=== PATIENT | female | born 1955 | race Caucasian/White ===

== ENCOUNTER 2019-01-18 08:51 | Day surgery (SDC) | payer OTHER, SELFPAY ==
[2019-01-18 09:17] VITALS: BP 141/75; PULSE 56; RESP 14; TEMP 36.7; BMI 28.0
--- NOTE | 2019-01-18 11:07 | H&P.OPEN ---
History of Present Illness Date of Admission: 01/18/19 The patient is a 63 year old F who presents for a colonoscopy. Patient had a colonoscopy approximately 3 years ago and a polyp was identified. Past Medical/Surgical History - Planned Operation Planned Operative Procedure/s: cscope open access Date of Operative Procedure: 01/18/19 Permit Signed: No S.O.S: No Is This Patient Having a Total Joint: No - Previous Hospitalizations/Surgeries HX Hospitalizations: No HX of Surgeries: hysterectomy/bowel reconstruction. cscope Any Problems With Anesthesia: No You/Your Family Experience Fever (Hyperthermia) With Anes: No Cholinesterase deficiency: No - Cardiovascular Hx Chest Pain within Last 2 months: No Hx of Irregular Heartbeat and/or Afib: No Hx Heart Attack: No Hx Congestive Heart Failure: No Hx Rheumatic Fever: No Hx Hypertension: Yes - controlled with med Hx Internal Defibrillator: No Hx Pacemaker: No Hx Cardiac Catheterization: No Hx Cardiac Surgery/Stents/Etc.: No Hx Stress Test: No HX Edema: No Hx Pain in Legs when Walking/Leg Cramps: No - Respiratory Chronic Cough: No HX of Shortness of Breath: No Hoarseness: No Hx Chronic Obstructive Pulmonary Disease (COPD): No Hx Asthma: No Hx Emphysema: No Hx Sleep Apnea: No Hx Oxygen Use at Home: No Hx Respiratory Tract Infection/Cold (presently): No Do You Snore Loudly (louder than talking or can be heard): No Do You Often Feel Tired/ Fatigued/ Sleepy Dring Daytime?: No Has Anyone Observed You Stop Breathing During Sleep?: No Result (for STOP score): Negative Hx Smoking: Yes - quit 13-15 yrs ago Smoking Status: Former smoker - Gastrointestinal Hx Gastroesophageal Reflux: No Hx Gastrointestinal Disorders: No Hx Gastrointestinal Bleed: No Hx Ulcer: No Hx Hiatal Hernia: No Difficulty Chewing/Swallowing: No Recent Onset of Swallowing Problems: No Special diet followed at home: No Hx Unplanned Weight Loss of 20#: No HX Unplanned Weight Gain of 20#: No - Neurological Hx Seizures: No HX Syncope/Blackout Spells/Unconsciousness: No Hx CVA/Stroke: No Hx Transient Ischemic Attacks (TIA): No Hx Multiple Sclerosis: No Hx Parkinson's Disease: No Hx Head/Neck Injury: No Hx Headaches: No Hx Back Injury/Pain: No Recent Onset of Speech Difficulty: No Restless Legs: No Does patient have nerve stimulator: No Patient instructed to have device shut off: No Rep notified?: No - Blood Disorder Hx Leukemia: No Bleeding Tendencies: No Hx Deep Vein Thrombosis: No Hx High Cholesterol: Yes - on med Blood Transmitted Disease: No Hx Hepatitis: No Hx Cirrhosis: No Hx Anemia: No Hx Blood Disorders: No - Reproduction : No Is Patient Lactating: No Hx Hysterectomy: No Hx Tubal Ligation: Yes Are You Post Menopause: Yes - Genitourinary Hx Renal Disease: No - Musculoskeletal Hx Arthritis: Yes Hx Rheumatoid Arthritis: No Hx Gout: No Recent Onset of an Orthopedic Problem: No - Endocrine Hx Diabetes: No Thyroid Disease: No Hx Steroid Therapy: No - Psycho/Social Hx Substance Use: No Hx Alcohol Use: No Hx Anxiety: Yes - on med Hx Depression: Yes - on med Mental Illness: No Hx Dementia: No - Miscellaneous Hx Cancer: No Recent Exposure to Contagious Disease: No Active MRSA: No Hx of C-Diff: No Any Loose Teeth: No Allergies No Known Allergies Allergy (Verified 01/13/19 11:00) - Discharge Is Pt Admitted From a Penitentiary, or a [place] [facility]: No Who Could Help: family After D/C, Where Do you Plan to Go: Return Home - From the PAT History Number of Risk Factors: 3 - Physical Exam General: Alert, Oriented x3 Neck: Supple, No JVD Lungs: Clear to auscultation Abdomen: Bowel Sounds Present, Soft, Non Tender, Non-Distended Vital Signs Temp Pulse Resp BP 98.0 F 56 L 14 141/75 H 01/18/19 09:17 01/18/19 09:17 01/18/19 09:17 01/18/19 09:17 Oxygen Delivery Method Room Air Weight: 158 lb 11.725 oz Body Mass Index (BMI) 28.0 Assessment/Plan Plan is to do a colonoscopy. Surgery Risks - Colonoscopy Risks Include but are not Limited To: Risks include but are not limited to: Bleeding, perforation requiring further surgery, inability to complete colonoscopy requiring barium enema.
[2019-01-18 11:40] VITALS: BP 109/55; BP 141/75; PULSE 79; RESP 15; TEMP 36.2; O2SAT 95
--- NOTE | 2019-01-18 11:43 | OP.ENDO_ITS ---
01/18/2019 Ren Chicas Re : Colonoscopy procedure for Shasha Marcelino Dear Aviva This procedure was performed on Friday, January 18, 2019. My impressions and recommendations are as follows: Impressions : - The procedure was aborted due to the extreme difficulty of the procedure. - The procedure was aborted due to a tortuous colon. - The entire examined colon is normal. - No specimens collected. Recommendations : - Discharge patient to home. - Resume previous diet. - Continue present medications. - Perform an air contrast barium enema today. - Repeat colonoscopy after studies are complete because the examination was incomplete. My findings are described in the full procedure note, which is enclosed. If I can be of further assistance, please feel free to contact me at Doctor phone number(s): , Fax: [phone], Work: . Sincerely, MD Trevor Barroso MD 01/18/2019 11:42:47 AM This report has been signed electronically.
--- NOTE | 2019-01-18 11:43 | RAD_ITS ---
STUDY: SINGLE CONTRAST BARIUM ENEMA REASON FOR EXAM: Female, 63 years old. Colonoscopy RADIATION DOSAGE (If Supplied By Facility): CTDIvol = ( ) mGy, DLP = ( ) mGycm. Individualized dose optimization techniques were used for this CT.? FLUOROSCOPY TIME (if supplied): (0:51) minutes/seconds TECHNIQUE: Single contrast COMPARISON: None. FINDINGS: [employer] film demonstrates unremarkable bowel gas pattern. Multiple lucent centered fluid was noted within the pelvis. Single contrast barium enema shows normal distention of the colon. No evidence of stricture, polyp, mass lesion, or obstruction. No significant reflux of contrast into the terminal ileum. No caliber change is noted. RAD/Barium Enema No Air Cont IMPRESSION: Normal study Electronically Signed: Pee Jeff MD at 13:57 EDT , Service support ,
[2019-01-18 11:45] VITALS: BP 133/68; BP 141/75; PULSE 83; RESP 16; O2SAT 97
[2019-01-18 11:50] VITALS: BP 138/72; BP 141/75; PULSE 88; RESP 16; O2SAT 100
[2019-01-18 11:55] VITALS: BP 131/73; BP 141/75; PULSE 88; RESP 16; TEMP 36.9; O2SAT 98
[2019-01-18 12:10] VITALS: BP 141/75
== END 2019-01-18 12:10 | disposition home or self-care (01) ==
LOC: EN 08:52 → AC 08:54
PROVIDERS: Family Provider Family Medicine; PCP Family Medicine; Referring Provider Family Medicine; Visit Provider Surgery
PROC: 0DJD8ZZ Inspection of Lower Intestinal Tract, Via Natural or Artificial Opening Endoscopic (ICD-10-PCS; CPT 45378; principal; 2019-01-18 09:55)
DX: Z12.11 Encounter for screening for malignant neoplasm of colon (principal); Z53.8 Procedure and treatment not carried out for other reasons; Z86.010 Personal history of colon polyps; I10 Essential (primary) hypertension; E78.00 Pure hypercholesterolemia, unspecified; F32.9 Major depressive disorder, single episode, unspecified; F41.9 Anxiety disorder, unspecified; Z78.0 Asymptomatic menopausal state; Z79.899 Other long term (current) drug therapy; Z87.891 Personal history of nicotine dependence; Z90.710 Acquired absence of both cervix and uterus
CPT/HCPCS: 45378; 74270; J7120; J1610

== ENCOUNTER → 2021-01-09 13:47 | Outpatient (CLI) | payer OTHER, SELFPAY ==
[2021-01-08 13:55] VITALS: BMI 31.9
--- NOTE | 2021-01-09 13:49 | ECHOD_ITS ---
Reason For Study: Abn EKG Procedure This was a 2D Doppler, Color Flow transthoracic echocardiogram. The exam was of adequate technical quality. Exam performed in department. Left Ventricle Normal LV size. Left ventricular systolic function is normal. The estimated ejection fraction is 65 %. No regional wall motion abnormalities noted. Right Ventricle Normal RV size. Normal systolic function. Atria The left atrium is mildly enlarged. Normal right atrium. No doppler evidence for ASD. Mitral Valve There is no mitral annular calcification. Normal mitral valve. Mild (1+) mitral valve insufficiency. Tricuspid Valve Normal tricuspid valve. Mild tricuspid valve insufficiency. Right ventricular systolic pressure estimated to be 28 mmHg. Aortic Valve Trisinus/trileaflet aortic valve. Mild focal aortic valve calcification. Pulmonic Valve The pulmonic valve is not well visualized. Great Vessels Normal sized aortic root. Pericardium/Pleural No pericardial effusion. MMode/2D Measurements & Calculations LVIDd: 4.4 cm IVSd: 0.96 cm Ao root diam: 3.0 cm LVIDs: 2.7 cm LVPWd: 0.90 cm RVDd: 3.2 cm FS: 38.6 % LAV(MOD-bp): 75.3 ml LVAd ap4: 22.3 cm2 LVAd ap2: 19.9 cm2 LAV(MOD-bp) Indexed: 40.7 ml/m2 LVLd ap4: 6.8 cm LVLd ap2: 6.3 cm LAV(MOD-sp2): 59.1 ml EDV(MOD-sp4): 62.5 ml EDV(MOD-sp2): 52.2 ml LAV(MOD-sp4): 75.0 ml EDV(sp4-el): 62.5 ml EDV(sp2-el): 53.5 ml LVAs ap4: 12.6 cm2 LVAs ap2: 11.9 cm2 LVLs ap4: 5.5 cm LVLs ap2: 5.9 cm ESV(MOD-sp4): 24.3 ml ESV(MOD-sp2): 20.3 ml ESV(sp4-el): 24.4 ml ESV(sp2-el): 20.4 ml EF(MOD-sp4): 61.1 % EF(MOD-sp2): 61.0 % EF(sp4-el): 61.0 % SV(MOD-sp4): 38.2 ml SV(MOD-sp2): 31.9 ml SV(sp4-el): 38.2 ml LA dimension(2D): 4.0 cm LA A4 area: 24.0 cm2 RA A4 area: 11.3 cm2 Doppler Measurements & Calculations MV E max vaughn: 86.9 cm/sec Lat Peak E' Vaughn: 8.5 cm/sec Med Peak E' Vaughn: 5.6 cm/sec MV A max vaughn: 57.8 cm/sec E/E' lat: 10.2 E/E' med: 15.6 MV E/A: 1.5 Ao V2 max: 127.7 cm/sec LV V1 max: 94.7 cm/sec PA V2 max: 72.3 cm/sec Ao max P.5 mmHg LV V1 max P.6 mmHg TR max vaughn: 248.7 cm/sec TR max P.8 mmHg ECHO/Echo Complete Interpretation Summary Left ventricular systolic function is normal. The estimated ejection fraction is 65 %. The left atrium is mildly enlarged. Mild (1+) mitral valve insufficiency. Mild tricuspid valve insufficiency. Mild focal aortic valve calcification. Right ventricular systolic pressure estimated to be 28 mmHg. Transmitral diastolic flow velocities suggest diastolic dysfunction (pseudonorm al pattern). 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 Ordering Physician: Rahul Wheeler Referring Physician: Ren Chicas M.D. Performed By: Beatris Tolbert RDCS
== END ==
PROVIDERS: PCP Family Medicine; Referring Provider Internal Medicine Cardiovascular Disease; Visit Provider Internal Medicine Cardiovascular Disease
DX: D15.1 Benign neoplasm of heart (principal); E78.2 Mixed hyperlipidemia; I10 Essential (primary) hypertension; R94.31 Abnormal electrocardiogram [ECG] [EKG]
CPT/HCPCS: 93306

== ENCOUNTER → 2021-12-03 | Outpatient (CLI) | payer MEDICARE, SELFPAY ==
[2021-12-03 15:34] LABS: Absolute Lymphocyte Count 2.84 X10^3/uL (0.83-4.51); Absolute Neutrophil Count 4.1 X10^3/uL (2.0-7.7); Basophil# 0.04 X10^3/uL; Basophil% 0.5 % (0-1); Eosinophil# 0.08 X10^3/uL; Eosinophils% 1.1 % (0-5); Hematocrit 41.4 % (37-47); Hemoglobin 13.4 g/dL (12.0-15.0); Lymphocyte # 2.84 X10^3/ul (0.83-4.51); Lymphocyte % 37.6 % (19-41); Mean Corp Hgb Conc 32.4 g/dL (32-36); Mean Corpuscular Hgb 30.1 pg (27.0-32.0); Mean Platelet Vol. 10.6 fl (6.2-12.0); Monocyte# 0.49 X10^3/uL; Monocyte% 6.5 % (0-10); NRBC Flagged by Analyzer 0 % (0-5); Neutrophil # 4.08 X10^3/uL (2.7-7.7); Neutrophil % 53.9 % (47-70); Platelet Count 220 K/mm3 (150-450); RBC Distribution Width CV 15.4 % (11.6-14.6); RBC Distribution Width SD 53.2 fl (35.1-43.9); Red Blood Count 4.45 M/mm3 (4.2-5.4); White Blood Count 7.6 K/mm3 (4.4-11.0)
[2021-12-03 15:57] LABS: Erythrocyte Sedimentation Rate 15 mm/hr (0-30)
[2021-12-03 16:08] LABS: CRP 3.39 mg/L (0.0-3.0)
== END | disposition home or self-care (01) ==
LOC: MTLAB 13:08
PROVIDERS: PCP Family Medicine; Referring Provider Specialist; Visit Provider Specialist
DX: Z96.651 Presence of right artificial knee joint (principal)
CPT/HCPCS: 36415; 85025; 85652; 86140

== ENCOUNTER → 2022-01-25 | Outpatient (CLI) | payer MEDICARE, SELFPAY ==
--- NOTE | 2022-01-25 13:06 | ECHOD_ITS ---
Reason For Study: BENIGN NEOPLASM OF HEART Procedure This was a 2D Doppler, Color Flow transthoracic echocardiogram. The exam was of adequate technical quality. Exam performed in department. Left Ventricle Normal LV size. Left ventricular systolic function is normal. The estimated ejection fraction is 60 %. No evidence for diastolic dysfunction. No regional wall motion abnormalities noted. Right Ventricle Normal RV size. Normal systolic function. Atria The left atrium is mildly enlarged. Normal right atrium. No doppler evidence for ASD. Mitral Valve There is no mitral annular calcification. Normal mitral valve. Trivial eccentric mitral valve insufficiency. Tricuspid Valve Normal tricuspid valve. Mild eccentric tricuspid valve insufficiency. Right ventricular systolic pressure estimated to be 21 mmHg. Aortic Valve The aortic valve is not well visualized. Pulmonic Valve The pulmonic valve is not well visualized. Great Vessels Normal sized aortic root. Pericardium/Pleural No pericardial effusion. MMode/2D Measurements & Calculations LVIDd: 4.5 cm IVSd: 0.97 cm Ao root diam: 2.9 cm LVIDs: 2.6 cm LVPWd: 0.98 cm RVDd: 3.0 cm FS: 42.6 % LAV(MOD-bp): 38.0 ml LVAd ap4: 21.0 cm2 SV(MOD-sp4): 34.6 ml LAV(MOD-bp) Indexed: 22.2 ml/m2 LVLd ap4: 6.4 cm LAV(MOD-sp2): 38.1 ml EDV(MOD-sp4): 57.8 ml LAV(MOD-sp4): 39.0 ml EDV(sp4-el): 58.5 ml LVAs ap4: 12.5 cm2 LVLs ap4: 5.6 cm ESV(MOD-sp4): 23.2 ml ESV(sp4-el): 23.5 ml EF(MOD-sp4): 59.9 % EF(sp4-el): 59.8 % SV(sp4-el): 35.0 ml LA A4 area: 15.0 cm2 LA dimension(2D): 4.1 cm RA A4 area: 13.2 cm2 Doppler Measurements & Calculations MV E max laverne: 82.3 cm/sec Ao V2 max: 102.9 cm/sec LV V1 max: 98.0 cm/sec MV A max laverne: 31.9 cm/sec Ao max P.3 mmHg LV V1 max P.9 mmHg MV E/A: 2.6 Ao V2 mean: 71.4 cm/sec LV V1 mean P.0 mmHg Ao mean P.4 mmHg LV V1 mean: 66.7 cm/sec Ao V2 VTI: 26.1 cm LV V1 VTI: 22.3 cm PA V2 max: 72.1 cm/sec TR max laverne: 213.1 cm/sec PA V2 mean: 53.4 cm/sec TR max P.2 mmHg ECHO/Echo Complete Interpretation Summary Left ventricular systolic function is normal. The estimated ejection fraction is 60 %. The left atrium is mildly enlarged. Trivial eccentric mitral valve insufficiency. Mild eccentric tricuspid valve insufficiency. Right ventricular systolic pressure estimated to be 21 mmHg. No evidence for diastolic dysfunction. Comment: No obvious intracardiac mass lesion identified. Ordering Physician: Rahul Wheeler Referring Physician: Rahul Wheeler Performed By: Antonieta Montenegro RCS
== END | disposition home or self-care (01) ==
PROVIDERS: PCP Family Medicine; Referring Provider Internal Medicine Cardiovascular Disease; Visit Provider Internal Medicine Cardiovascular Disease
DX: D15.1 Benign neoplasm of heart (principal); I44.2 Atrioventricular block, complete; I97.89 Other postprocedural complications and disorders of the circulatory system, not elsewhere classified
CPT/HCPCS: 93306

== ENCOUNTER 2022-02-28 13:30 | Outpatient (RCR) | payer MEDICARE, SELFPAY ==
--- NOTE | 2021-11-29 08:56 | HP.PTEVAL ---
Patient's Visit Information SARAVANAN ROSS is a 66 year old F referred to Physical Therapy by JANETH LAMBERT with a diagnosis of Right TKR. Date of Evaluation: 11/29/21 Physical Therapist: Varsha Ferris DPT - Visit Plan Frequency: 3x /Week Duration: 4 Weeks Plan: RTK 08/22/21. HEP Reviewed from [place]. - Subjective Patient reports that she had a right total knee replacement 08/22/21 at [facility]. Doing great and then about a week ago- it all fell apart. She came home from [place] on November 21- then it fell apart. She flew home and went through the airport with a w/c. Then 2 days later she started having problems with it. She does not feel like its getting any better. She reports stiffness, throbbing- Worst: 5-6/10. Agg: standing, walking long distances. Best: 1-2/10 Eases: sit on the chair with elevation, hot pack- does not use ice. posterior of the knee. Pain is located in the anterior and Maybe 2x a week she uses a Tramadol- was using it for PT. She sees Dr. Castaneda Friday to establish an MD here. She is home for the summer-she is more active but is not currently due to the pain in her knee. Sleep: not disturbed- back with a pillow under the knee. PMHx/Meds: see list - Objective Posture: FH, RS- can correct with verbal cues but does not maintain. Gait: slightly antalgic- decreased stance on the right LE with poor heel/toe pattern- no AD. HR/TR: able without pain. SLS: 15 sec- without pain. Stairs: asc/desc 8 non recip with 2 HR. Girth: Patella: 39cm 6 above: 49 cm. ROM: 10-90 degrees with stiffness at each end range. Strength: Hip: 4+/5, Knee: Flexion: 15 Extn: 20. Flex: HS: severe, Gastroc: moderate. Observation: incision healing well - Balance/Special Test Scores Lower Extremity Functional Score: 18 - Goals Goal 1:: Patient will be I with HEP and progression Goal Time Frame: 4-6 Weeks Goal 2:: Patient will asc/desc 8 stairs recip with 1 HR. Goal Time Frame: 4-6 Weeks Goal 3:: Patient will demo 0-115 degrees Goal Time Frame: 4-6 Weeks Goal 4:: Patient will report 80% improvement. Goal Time Frame: 4-6 Weeks - Rehabilitation Potential Physical Therapy Diagnosis: Patient presents with hypomobility s/p right TKR. She has decreased LE and core strength/stabilization, ROM, flex and flexibility leading to abnormal gait and decreased ability to perform ADL's. Rehabilitation Potential: Good - Anticipated Interventions Patient/Client Instruction: Educate patient on: Benefits of Fitness Program Therapeutic Exercise to Include: Strength training, Endurance training, Balance training, Coordination, Agility training, Body mechanics, Postural training, Flexibilty training, Gait and locomotor training, Neuromotor development, Dynamic Lumbar Stabilization For the Purpose of:: To improve muscle performance and motor function TENS: Yes Cryotherapy (ice pack, ice massage): Yes Thermo therapy (hot pack): Yes Ultrasound (thermal/non thermal): No Vasopneumatic device: Yes For the Purpose of:: To decrease pain, To decrease swelling/inflammation Thank you for the opportunity to evaluate your patient. For Medicare and Medicare HMO plans, please review the plan of care and approve it. It will need to be FAXED BACK to us at [phone] for Medicare purposes. For Medicare only, by signing this I certify the plan of care. Please let me know if there are questions or concerns regarding this plan of care. Physician Signature: Date:
--- NOTE | 2022-01-09 12:49 | HP.PTREVAL ---
JANETH LAMBERT, It has been my pleasure to treat SARAVANAN ROSS over the last 17 visits for Right TKR 08/22/21. Please see the progress note below for an update on the physical therapy plan of care! Subjective: Patient reports that she feels better and feels that she is making progress. Objective/Function: Posture: fair throughout. Gait: slightly antalgic- decreased stance on the right LE with poor heel/toe pattern- no AD. HR/TR: able without pain. SLS: 15 sec- without pain. Stairs: asc/desc 8 recip with 1 HR. Girth: Patella: 40cm 6 above: 52 cm. ROM: 5-110 degrees with stiffness at each end range. Strength: Hip: 4+/5, Knee: Flexion: 40 Extn: 23. Flex: HS: severe, Gastroc: moderate. Observation: incision healing well Plan Plan: 01/09/22: Continue current POC- focus on ROM, scar massage and functional movement. Balance/Gait/Functional tests - Balance/Special Test Scores Lower Extremity Functional Score: 37 Tug Test: <10 sec.=free mobile WOMAC Total Score: 13 WOMAC Percentage: 86.4600 Goals Goal 1:: Patient will be I with HEP and progression Goal Time Frame: 4-6 Weeks Goal Progress: Progressing Goal 2:: Patient will asc/desc 8 stairs recip with 1 HR. Goal Time Frame: 4-6 Weeks Goal Progress: Progressing Goal 3:: Patient will demo 0-115 degrees Goal Time Frame: 4-6 Weeks Goal Progress: Progressing Goal 4:: Patient will report 80% improvement. Goal Time Frame: 4-6 Weeks Anticipated Interventions Patient/Client Instruction: Educate patient on: Benefits of Fitness Program Therapeutic Exercise to Include: Strength training, Endurance training, Balance training, Coordination, Agility training, Body mechanics, Postural training, Flexibilty training, Gait and locomotor training, Neuromotor development, Dynamic Lumbar Stabilization For the Purpose of:: To improve muscle performance and motor function TENS: Yes Cryotherapy (ice pack, ice massage): Yes Thermo therapy (hot pack): Yes Ultrasound (thermal/non thermal): No Vasopneumatic device: Yes For the Purpose of:: To decrease pain, To decrease swelling/inflammation Please do not hesitate to contact me at [phone] by phone or if you have questions or concerns regarding this new plan of care! Sincerely, CORI JohnsonT
--- NOTE | 2022-01-31 10:50 | HP.PTREVAL_ITS ---
JANETH LAMBERT, It has been my pleasure to treat SARAVANAN ROSS over the last 22 visits for Right TKR 08/22/21. Please see the progress note below for an update on the physical therapy plan of care! Subjective: Patient reports that she is getting better- ready to try her exercises for a month. Still challenged with desc stairs Objective/Function: Posture: fair throughout. Gait: slightly antalgic- decreased stance on the right LE with poor heel/toe pattern- no AD. HR/TR: able without pain. SLS: 20 sec- without pain. Stairs: asc/desc 8 recip with 1 HR- moderate discomfort with desc. Girth: Patella: 37 cm 6 above: 52.5 cm. ROM: 0-115 degrees with stiffness at each end range flexion. Strength: Hip: 4+/5, Knee: Flexion: 18 Extn: 31. Flex: HS: severe, Gastroc: moderate. Plan Plan: 01/31/22: Hold 4 weeks then follow up. Balance/Gait/Functional tests - Balance/Special Test Scores Lower Extremity Functional Score: 55 TUG Test Time Seconds: 6.8 Tug Test: <10 sec.=free mobile WOMAC Total Score: 18 WOMAC Percentage: 81.2500 Goals Goal 1:: Patient will be I with HEP and progression Goal Time Frame: 4-6 Weeks Goal Progress: Goal Met Goal 2:: Patient will asc/desc 8 stairs recip with 1 HR. Goal Time Frame: 4-6 Weeks Goal Progress: Progressing Goal 3:: Patient will demo 0-115 degrees Goal Time Frame: 4-6 Weeks Goal Progress: Goal Met Goal 4:: Patient will report 80% improvement. Goal Time Frame: 4-6 Weeks Goal Progress: Goal Met Anticipated Interventions Patient/Client Instruction: Educate patient on: Benefits of Fitness Program Therapeutic Exercise to Include: Strength training, Endurance training, Balance training, Coordination, Agility training, Body mechanics, Postural training, Flexibilty training, Gait and locomotor training, Neuromotor development, Dynamic Lumbar Stabilization For the Purpose of:: To improve muscle performance and motor function TENS: Yes Cryotherapy (ice pack, ice massage): Yes Thermo therapy (hot pack): Yes Ultrasound (thermal/non thermal): No Vasopneumatic device: Yes For the Purpose of:: To decrease pain, To decrease swelling/inflammation Please do not hesitate to contact me at [phone] by phone or Fax: if you have questions or concerns regarding this new plan of care! Sincerely, CORI JohnsonT
--- NOTE | 2022-02-28 13:53 | HP.PTDCSUM ---
It has been my pleasure to treat SARAVANAN ROSS referred by JANETH LAMBERT, with the diagnosis of Right TKR 08/22/21 for a total of 23 visit(s). Discharge Date: Please see the following information for a summary of their discharge status. Subjective: Patient reports that she is doing great- she walked 4 and 5 hours the last few weekends. No pain just a little bit of stiffness. Right knee Pain Intensity (Out of 10): 0 % Improvement: 90 Objective/Function: Posture: fair throughout. Gait: no deviation noted HR/TR: able without pain. SLS: 25 sec- without pain. Stairs: asc/desc 8 recip with 1 HR- moderate discomfort with desc. ROM: 0-115 degrees with stiffness at each end range flexion. Strength: Hip: 4+/5, Knee: Flexion: 18 Extn: 31. Flex: HS: severe, Gastroc: moderate. Goal 1:: Patient will be I with HEP and progression Goal Progress: Goal Met Goal 2:: Patient will asc/desc 8 stairs recip with 1 HR. Goal Progress: Progressing Goal 3:: Patient will demo 0-115 degrees Goal Progress: Goal Met Goal 4:: Patient will report 80% improvement. Goal Progress: Goal Met Plan: Discharge to [facility] If there are questions or concerns regarding this patient's physical therapy, please feel free to call me at [phone]. Thank you for the referral of this patient. Sincerely, Varsha Ferris, DPT Balance/Gait/Functional tests - Balance/Special Test Scores Lower Extremity Functional Score: 55 TUG Test Time Seconds: 6.8 Tug Test: <10 sec.=free mobile WOMAC Total Score: 18 WOMAC Percentage: 81.2500
== END 2022-02-28 14:06 | disposition home or self-care (01) ==
LOC: PT 13:30
PROVIDERS: PCP Family Medicine
DX: Z47.1 Aftercare following joint replacement surgery (principal)
CPT/HCPCS: 97016; 97110; 97140; 97162; 97164

== ENCOUNTER 2022-03-15 11:24 | Day surgery (SDC) | payer MEDICARE, SELFPAY ==
[2022-03-15] MEDS: Lactated Ringers 1,000 ML 15 ML IV (11:45)
--- NOTE | 2022-03-15 11:56 | PCM.HP.BLA ---
History and Physical Date of Admission: 03/15/22 HISTORY AND PHYSICAL ? Shasha Marcelino 1955 ? REFERRING PHYSICIAN: Jatinder Carpio MD ? CHIEF COMPLAINT: Consult (colonoscopy) ? HPI: The patient is a 66 year old female referred for endoscopy. Shasha notes no history of colon complaints. ? The patient notes no history of upper GI complaints. ? Shasha has undergone prior endoscopy. Patient had her last colonoscopy in 2015 which came back as a tubular adenoma. At that time I was unable to get all the way to the cecum and she subsequently had to have a barium enema. I believe that she would be better served to have this under MAC anesthesia. ? The patient is being seen by me today at the request of Dr. Carpio for my opinion and advice regarding Personal history of colonic polyps (primary encounter diagnosis). ? ? PAST MEDICAL HISTORY PAST MEDICAL HISTORY Diagnosis Date ? Bipolar affect, depressed (HCC) ? ? Cardiac mass ? ? Hyperlipemia ? ? Unspecified constipation ? ? ? PAST SURGICAL HISTORY PAST SURGICAL HISTORY Procedure Laterality Date ? COLONOSCOPY FLX DX W/COLLJ SPEC WHEN PFRMD ? 05/01/2009 ? PAST SURGICAL HISTORY OF ? ? ? colon resection for endometriosis ? PAST SURGICAL HISTORY OF Right ? ? right thumb trigger finger ? PAST SURGICAL HISTORY OF ? 01/28/2021 ? heart mass ? PAST SURGICAL HISTORY OF Right 2021 ? knee replacement ? PAST SURGICAL HISTORY OF ? 01/28/2021 ? pacemaker ? TONSILLECTOMY & ADENOIDECTOMY <AGE 12 ? ? ? TOTAL ABDOMINAL HYSTERECT W/WO RMVL TUBE OVARY ? ? ? Hysterectomy, [facility] ? ? ? CURRENT MEDICATIONS Current Outpatient Medications Medication Sig ? propranolol (INDERAL) 20 mg tablet Take 10 mg by mouth twice daily. ? celecoxib (CELEBREX) 200 mg capsule Take 200 mg by mouth once daily. ? simvastatin (ZOCOR) 40 mg tablet Take 1 tablet by mouth daily at bedtime. ? divalproex DR (DEPAKOTE) 500 mg EC tablet Take 1 tablet by mouth twice daily. ? melatonin 1 mg tablet Take 1-3 tablets by mouth at bedtime as needed for for insomnia. ? acetaminophen (TYLENOL) 325 mg tablet Take 2 tablets by mouth every 4 hours as needed for pain (for mild pain). ? mv,erin,iron,mn/folic acid/chol (AUVW-NIEP-WYZIS, PABA, ORAL) Take by mouth. ? aspirin 81 mg chewable tablet Take 81 mg by mouth once daily. ? lamoTRIgine (LAMICTAL) 100 mg tablet Take 100 mg by mouth once daily. ? ARIPiprazole (ABILIFY) 5 mg tablet Take 1 tablet by mouth once daily. ? Current Facility-Administered Medications Medication Dose Route Frequency ? perflutren lipid microspheres 1.3 mL in NaCl (PF) 0.9% 10 mL injection (DEFINITY) INTRAVENOUS DIRECTED PRN ? sodium chloride 0.9 % (flush) 10 mL (BD POSIFLUSH) 10 mL INTRAVENOUS DIRECTED PRN ? ? ALLERGIES: Patient has no known allergies. ? PERSONAL HISTORY: SOCIAL HISTORY Social History ? Tobacco Use ? Smoking status: Former ? ? Years: 4.00 ? ? Types: Cigarettes ? ? Start date: 1973 ? ? Quit date: 1977 ? ? Years since quittin.7 ? Smokeless tobacco: Never Vaping Use ? Vaping Use: Never used Substance Use Topics ? Alcohol use: Yes ? ? Comment: socially (1 x a month) ? Drug use: No ? ? Comment: smoked pot in college ? FAMILY HISTORY: FAMILY HISTORY FAMILY HISTORY Problem Relation Age of Onset ? Colon Cancer Paternal Grandfather ? ? Colon Cancer Maternal Uncle ? ? great ? Colon Cancer Maternal Uncle ? ? great ? Cervical Cancer Maternal Grandmother ? ? COPD Father ? ? ? REVIEW OF SYMPTOMS: The review of systems data was entered by the nurse and reviewed by me ? Nursing Notes: Clover SilveiraCLARISA 03/12/2022 9:35 AM Signed REVIEW OF SYSTEMS: General: The patient denies fatigue, notes weight loss, denies weight gain, denies feeling hot, and denies feelings of cold. Eyes: The patient denies glaucoma, denies eye injury/surgery, does not wear glasses or contacts. Ear/Nose/Throat: The patient denies allergies, denies hayfever, denies ear infections, and denies bloody noses. Cardiovascular: The patient denies chest pain, denies heart disease, denies high blood pressure,denies cardiac stent, denies prior heart attack, denies irregular heart beat, notes high cholesterol, denies poor circulation, notes heart failure, other cardiac issues, denies claudication, notes cold feet, denies peripheral arterial stent. Respiratory: The patient denies tuberculosis, denies pneumonia, denies frequent cough, denies pulmonary embolism, denies shortness of breath, and denies coughing up blood. Gastrointestinal: The patient denies difficulty swallowing, denies acid reflux, denies ulcers, denies vomiting, denies jaundice/hepatitis, denies gallbladder problems, denies black or tarry stools, denies hemorrhoids, denies bleeding from rectum, denies diverticulitis, denies constipation, denies diarrhea, denies loss of stool control, and denies hernias. Kidney/Bladder: The patient denies kidney stones, denies urine infections, and denies bloody urine. Skin: The patient denies a history of skin cancer, denies bleeding/changing moles, and denies a history of skin rash. Neurologic: The patient denies a history of epilepsy/convulsions, denies headaches, denies head/spinal injuries, and denies stroke/TIA. Psychiatric: The patient notes psychiatric medications, denies depression, and denies voices, denies substance abuse. Endocrine: The patient denies thyroid disorders, denies diabetes, and denies hormonal problems. Hematologic: The patient notes a history of bruising, denies bleeding, and denies anemia, denies blood clots. Infections: The patient denies a history of measles and mumps, denies rheumatic fever, and denies sexually transmitted diseases. Musculoskeletal: The patient denies back pain/injury, denies back problems, denies sciatica, denies knee/foot trouble, denies arthritis, or denies gout. ? ? When was patient's last Mammogram screening? 2021 ? Last Colonoscopy: 2016 ? Clover Silveira LPN PHYSICAL EXAMINATION: ? General: The patient is 66 year old female, well nourished, well hydrated in no acute distress. The patient is oriented to time, place, and person. ? VITALS: Blood pressure 122/78, pulse 68, temperature (!) 35.9 ?C (96.7 ?F), height 157.5 cm (5' 2), weight 68.9 kg (152 lb), SpO2 98 %. Body mass index is 27.8 kg/m?. ? HEENT: Normal cephalic, ataumatic, pupils are equally round, sclera are anicteric, mucous membranes are moist, oropharynx is clear. Neck has no masses, asymmetry or lymphadenopathy. Thyroid is unremarkable. ? Respiratory: Clear to auscultation and percussion. Normal respiratory excursion and pattern. ? Cardiac: Examination is regular rate and rhythm. ? Abdominal exam: Soft, nontender, with no palpable masses. No hepatosplenomegaly. No palpable hernias. ? Rectal exam: exam deferred ? Extremities: no clubbing, cyanosis or edema. No adenopathy. ? Other: ? LABORATORY VALUES: As Noted ? RADIOLOGIC STUDIES: As Noted ? Assessment IMPRESSION: Personal history of colonic polyps (primary encounter diagnosis) ? PLAN: I plan to perform lower endoscopy. We discussed the risks and benefits of the planned endoscopy. I have informed the patient that complications can occur including failure to complete the endoscopy and perforation. The patient had the opportunity to ask questions concerning the planned endoscopy. My staff has also explained the procedure to the patient in understandable terms and has given the patient printed material concerning the procedure. The patient freely consents to surgery. ? I plan to use golytely bowel preparation for endoscopy ? I plan for monitored anesthetic care. ? Diagnoses: (Z86.010) Personal history of colonic polyps (primary encounter diagnosis) ? ? A letter was sent to Dr. Jatinder Carpio MD indicating the above finding for this patient. Return to Clinic: The patient is instructed to follow-up with me 1 week post operatively. ? Trevor Mccallum III, MD I have re-examined the patient. There are no clinical changes since date of exam.
[2022-03-15 11:57] VITALS: BP 135/73; PULSE 61; RESP 18; TEMP 36.4; O2SAT 100; BMI 26.2
[2022-03-15 13:09] VITALS: BP 135/73; BP 93/51; PULSE 60; RESP 18; TEMP 36.5; O2SAT 97
--- NOTE | 2022-03-15 13:11 | OP.COLON_ITS ---
Patient Name: Shasha Marcelino Procedure Date: 03/15/2022 12:30 PM Date of : 1955 Age: 66 Procedure: Colonoscopy Indications: High risk colon cancer surveillance: Personal history of colonic polyps Providers: Trevor Mccallum MD Medicines: See the Anesthesia note for documentation of the administered medications Patient Profile: This is a 66 year old female. Refer to note in patient chart for documentation of history and physical. Last Colonoscopy: December 2018. Complications: No immediate complications. Estimated blood loss: None. Procedure: Pre-Anesthesia Assessment: - Prior to the procedure, a History and Physical was performed, and patient medications and allergies were reviewed. The patient's tolerance of previous anesthesia was also reviewed. The risks and benefits of the procedure and the sedation options and risks were discussed with the patient. All questions were answered, and informed consent was obtained. Prior Anticoagulants: The patient has taken no previous anticoagulant or antiplatelet agents. ASA Grade Assessment: II - A patient with mild systemic disease. After reviewing the risks and benefits, the patient was deemed in satisfactory condition to undergo the procedure. After I obtained informed consent, the scope was passed under direct vision. Throughout the procedure, the patient's blood pressure, pulse, and oxygen saturations were monitored continuously. The colonoscope was introduced through the anus and advanced to 3 cm into the ileum. The colonoscopy was unusually difficult due to a tortuous colon. Successful completion of the procedure was aided by withdrawing the scope and replacing with the pediatric endoscope. The patient tolerated the procedure well. The quality of the bowel preparation was good. Scope In: 12:33:18 PM Scope Withdrawal Time 0 hours 6 minutes 37 seconds Scope Out: 1:04:17 PM Total Procedure Duration Time 0 hours 30 minutes 59 seconds Findings: The perianal and digital rectal examinations were normal. The sigmoid colon was significantly tortuous. Advancing the scope required withdrawing and reinserting the scope. The terminal ileum appeared normal. The exam was otherwise without abnormality on direct and retroflexion views. Impression: - Tortuous colon. - The examined portion of the ileum was normal. - The examination was otherwise normal on direct and retroflexion views. - No specimens collected. Recommendation: - Patient has a contact number available for emergencies. The signs and symptoms of potential delayed complications were discussed with the patient. Return to normal activities tomorrow. Written discharge instructions were provided to the patient. - Resume previous diet. - Continue present medications. - Repeat colonoscopy in 10 years for screening purposes. - Return to primary care physician PRN. Procedure Code(s): --- Professional --- 45838, Colonoscopy, flexible; diagnostic, including collection of specimen(s) by brushing or washing, when performed (separate procedure) Diagnosis Code(s): --- Professional --- Z86.010, Personal history of colonic polyps Q43.8, Other specified congenital malformations of intestine CPT copyright 2017 [employer]. All rights reserved. The codes documented in this report are preliminary and upon meter calibrator review may be revised to meet current compliance requirements. MD Trevor Barroso MD 03/15/2022 1:10:45 PM This report has been signed electronically. Number of Addenda: 0 Note Initiated On: 03/15/2022 12:30 PM
--- NOTE | 2022-03-15 13:11 | OP.CCLET_ITS ---
03/15/2022 Jatinder Carpio Re : Colonoscopy procedure for Shasha Marcelino Dear Balaji This procedure was performed on Tuesday, March 15, 2022. My impressions and recommendations are as follows: Impressions : - Tortuous colon. - The examined portion of the ileum was normal. - The examination was otherwise normal on direct and retroflexion views. - No specimens collected. Recommendations : - Patient has a contact number available for emergencies. The signs and symptoms of potential delayed complications were discussed with the patient. Return to normal activities tomorrow. Written discharge instructions were provided to the patient. - Resume previous diet. - Continue present medications. - Repeat colonoscopy in 10 years for screening purposes. - Return to primary care physician PRN. My findings are described in the full procedure note, which is enclosed. If I can be of further assistance, please feel free to contact me at Doctor phone number(s): , Work: . Sincerely, MD Trevor Barroso MD 03/15/2022 1:10:45 PM This report has been signed electronically.
[2022-03-15 13:14] VITALS: BP 135/73; BP 95/47; PULSE 60; RESP 18; O2SAT 99
[2022-03-15 13:20] VITALS: BP 115/59; BP 135/73; PULSE 60; RESP 18; O2SAT 95
[2022-03-15 13:23] VITALS: BP 112/61; BP 135/73; PULSE 60; RESP 18; TEMP 36.3; O2SAT 99
[2022-03-15 13:35] VITALS: BP 135/73
== END 2022-03-15 13:42 | disposition home or self-care (01) ==
LOC: EN 11:25 → AC 11:30
PROVIDERS: PCP Family Medicine; Referring Provider Family Medicine; Visit Provider Surgery
PROC: 0DJD8ZZ Inspection of Lower Intestinal Tract, Via Natural or Artificial Opening Endoscopic (ICD-10-PCS; CPT 45378; principal; 2022-03-15 12:25)
DX: Z12.11 Encounter for screening for malignant neoplasm of colon (principal); Q43.8 Other specified congenital malformations of intestine; E78.5 Hyperlipidemia, unspecified; Z79.82 Long term (current) use of aspirin; Z79.899 Other long term (current) drug therapy; Z86.010 Personal history of colon polyps; Z87.891 Personal history of nicotine dependence; Z80.0 Family history of malignant neoplasm of digestive organs
CPT/HCPCS: G0121; J7120; J1610; J2405